=== PATIENT | male | born 1940 | race Two or more races ===

== ENCOUNTER 2020-04-26 11:41 | Outpatient (CLI) | payer OTHER | END 2020-04-26 23:59 | disposition home or self-care (01) | LOC: LAB 11:41 | PROVIDERS: ATTEND Specialist | DX: Z01.812 Encounter for preprocedural laboratory examination (principal); Z20.822 Contact with and (suspected) exposure to COVID-19 | CPT/HCPCS: 87426; C9803; U0003 ==

== ENCOUNTER 2020-05-01 07:20 | Day surgery (SDC) | payer OTHER ==
[2020-05-01] MEDS ORDERED: CLINDAMYCIN 900 MG/6 ML VIAL ONE (10:14)
[2020-05-01] MEDS ORDERED: MIDAZOLAM HCL 2 MG/2ML VIAL ONE (10:15)
[2020-05-01] MEDS ORDERED: DESFLURANE 240 ML BOTTLE IH ONE (10:16)
[2020-05-01] MEDS ORDERED: SEVOFLURANE 250 ML BOTTLE IH ONE (10:16)
[2020-05-01] MEDS ORDERED: BUPIVACAINE 0.25% 75 MG/30 ML VIAL ONE (10:17)
[2020-05-01] MEDS ORDERED: EPINEPHRINE (1:1000) 1 MG/ML AMPUL ONE (12:45)
[2020-05-01] MEDS ORDERED: methylPREDNISolone ACETATE 80 MG/ML VIAL ONE (13:26)
== END 2020-05-01 15:30 | disposition home or self-care (01) ==
LOC: DS 07:20
PROVIDERS: ATTEND Specialist
DX: M75.41 Impingement syndrome of right shoulder (principal); M65.811 Other synovitis and tenosynovitis, right shoulder
CPT/HCPCS: 29822; 29824; 36415; 71045; 86850; A4217; A4565; J0171; J0690; J1040; J1100; J2250; J2405; J2704; J3490 ×3